=== PATIENT | male | born 1980 | race Caucasian/White ===

== ENCOUNTER 2016-04-06 09:06 | Emergency (ER) | payer OTHER ==
[~2016-04-06] VITALS: Ht 188 cm; Wt 170.4 kg
[~2016-04-06 09:06] MED LIST: ONDA-53 PO
[2016-04-06 09:26] VITALS: BP 171/109; PULSE 131; RESP 22; O2SAT 93
--- NOTE | 2016-04-06 09:49 | ED.REPORT ---
HPI-Abd Pain M Under 40 Date of Service Apr 06, 2016 ED Provider: Porfirio Hall Patient is a 35 year old male with a history of asthma and alcohol abuse who presents to the ED complaining of a distended abdomen which has been present for months. He does not report abdominal pain he reports some limited breathing because of his distended abdomen but this again is not acute. He denies abdominal tenderness he denies recent vomiting hematemesis or hematochezia. He stopped drinking for 50 days but about 20 days ago he started drinking again. Associated symptoms include shortness of breath and alcohol withdrawal symptoms. He denies abdominal pain, fever, or any other symptoms. He went to [facility] last night to have the fluid drained from his abdomen. After starting the procedure they determined that they did not have the proper equipment for the drainage and sent him here. Nursing Notes Stated Complaint: INCISION NEEDS DRAINED Chief Complaint: General Complaint Nursing Notes Reviewed: Yes Allergies: Coded Allergies: diphenhydramine (Verified Allergy, Unknown, rash, 08/21/15) used benadry in lotion form when he had chicken pox as kid and broke out in rash where cream was applied Scheduled PRN Lorazepam (Lorazepam) 1 Mg Tablet 1 MG PO DIRECTED PRN PRN For Insomnia 2 Tab every 4 hrs. for 2 days, then 1 tab every 4 hrs for 2 days then 1 tab tid for 2 days then stop Ondansetron (Ondansetron) 4 Mg Tablet 4 MG PO QID PRN PRN For Nausea General Time Seen by MD: 09:48 Chief Complaint Other (Abdominal discomfort ) Hx Obtained From: Patient, Other family... Arrived By: Walk-in Recent Healthcare: Recent doctor visit Past Medical History Past Medical History alcoholism Reports: Hypertension Past Surgical History None Smoking History Never Smoker Social History daily THC use Alcohol Use: In recovery Drug Use: THC Occupation Unemployed Ambulatory Status Independent Review of Systems +Bloated abdomen Constitutional: Reports: Fever Respiratory: Reports: Shortness of breath GI: Denies: Abdominal pain Complete sys rev & neg: except as marked. Physical Exam Initial Vital Signs Vital Signs (First) Date Time Temp Pulse Resp B/P Pulse Ox O2 Delivery O2 Flow Rate FiO2 04/06/16 09:26 37.4 131 22 171/109 93 Room Air Initial VS: Reviewed Head / Eyes: Atraumatic, Normocephalic Skin: Warm, Dry Neurologic: Alert, Oriented, Nonfocal Psychiatric: Mood/affect normal, Behavior normal, Normal thought content General/Constitutional: Awake, Alert, Well developed Respiratory / Chest: No respiratory distress Cardiovascular: Peripheral circulation NL Abdomen: Non-tender Wound at 7 o'clock position 5 cm below umbilicus. 1 needle poke that is leaking fluid Back: Inspection NL Interpretation & Diagnostics Bedside US: peritoneal edge 3 cm from surface Labs from visit on 04/05/16 at 2301 at [facility] 141 K 3.4 Cl 101 CO2 30 Anion gap 10 Glucose 136 BUN <1 Creatinine 0.72 Protein 8.7 Albumin 2.8 Lipase 389 Lactate 3.6 WBC 7.2 HGB 16.6 HCT 45.9 Platelets 62 APTT 27.6 Prothrombin 12.8 INR 1.3 Breathalyzer 0.282 at 2220 on 04/05/16 Lab Results Interpretation Test 04/06/16 14:00 Procedures 1130 Paracentesis: Informed consent from patient provided, timeout performed, full sterile technique utilized. Lidocaine 1% with epi. Skin cleaned 18-gauge catheters inserted into the peritoneum without complication. Patient tolerated procedure well, condition improved, no complications. 3800 cc clear bari fluid drained Re-Eval/Medical Decision Med Decision/Clinical Course This patient appears well. I believe that his ascites is chronic and that it is likely to reaccumulate over the coming weeks because of his underlying liver disease. There is no hope of his liver improving unless he can quit drinking which I believe is the primary issue here. I have no immediate concerns that he is at any danger for abdominal infection or severe complications of alcohol withdrawal. I believe outpatient withdrawal is appropriate Re-Evaluation/Progress #1: Time of Eval: 10:32 )( Re-Eval Abdomen: Non-tender Re-Evaluation/Progress Note: Discussed plan for drainage. Discussed plan to get patient into Crisis for withdrawal. Patient understands and agrees with plan. All questions addressed at this time. Re-Evaluation/Progress #2: Time of Eval: 12:12 )( Re-Eval Abdomen: Non-tender Re-Evaluation/Progress Note: Rechecked patient. Drainage complete. Heart rate is 120. Re-Evaluation/Progress #3: Time of Eval: 13:34 )( Re-Eval Abdomen: Non-tender Re-Evaluation/Progress Note: Discussed plan for discharge in care of father. Plan is for patient to go to Crisis at 2000 hours. Father is a reliable form of supervision and assumes responsibility at this time. Patient understands and agrees with plan. All questions addressed at this time. Counseled Regarding: Diagnosis, Lab results, Need for follow-up, When/why to return to ED Patient Discharge & Departure Primary Impression: Alcohol withdrawal Complication of substance-induced condition: uncomplicated Qualified Code: F10.230 - Alcohol dependence with withdrawal, uncomplicated Additional Impression: Ascites due to alcoholic cirrhosis Disposition: Home Discharge Condition All VS Reviewed: Yes Condition: Stable Patient Instructions: Abuse of Alcohol (ED), Cirrhosis (ED) Additional Instructions: We have removed some of the fluid from your abdominal cavity. This procedure is called a paracentesis. I expect that it will relieve the pressure in your abdomen and chest for the coming days. The real problem however is your alcoholic liver disease. The fluid will continue to reaccumulate until you quit drinking and allow your liver to heal. [facility] is willing and able to take you at 8:00 this evening. Do not drink any alcohol prior to arrival. They will not accept you if your alcohol level is over there limit. I have prescribed an Ativan taper for you I recommend lorazepam 2 mg tablets once every 4 hours for the first 2 days and tapering thereafter, see the prescription label. Do not take the lorazepam if he is sleepy or sleeping or not alert in any way. Referrals: Evens Carrion MD (PCP) Scribe Attestation Portions of this note were transcribed by Katy Nguyen. I, Dr. Hall personally performed the history, physical exam and medical decision-making; I reviewed and confirmed the accuracy of the information in the transcribed note. Signed by: Katy Nguyen 04/06/16, 1228 copies to: Evens Carrion MD, Kirk H MD Apr 06, 2016 09:49 KATY NGUYEN Apr 06, 2016 10:08
[2016-04-06] MEDS ORDERED: LORazepam 2 mg Tablet PO ONE (10:35)
[2016-04-06] MEDS ORDERED: Lidocaine 1%-Epi 1:100,000 20 mL Inj ONE (11:28)
[2016-04-06] MEDS ORDERED: LORA1TAB PO (13:49)
[2016-04-06 14:26] VITALS: BP 139/61; PULSE 131; RESP 16; O2SAT 91
== END 2016-04-06 14:28 | disposition home or self-care (01) ==
LOC: SED 09:06
DX: F10.230 Alcohol dependence with withdrawal, uncomplicated (principal); K70.31 Alcoholic cirrhosis of liver with ascites; J45.909 Unspecified asthma, uncomplicated; I10 Essential (primary) hypertension; Z88.8 Allergy status to other drugs, medicaments and biological substances; F12.920 Cannabis use, unspecified with intoxication, uncomplicated

== ENCOUNTER 2016-04-06 21:50 | Emergency (ER) | payer OTHER ==
[~2016-04-06] VITALS: Ht 188 cm; Wt 170.4 kg
[~2016-04-06 21:50] MED LIST changes: +LORA1TAB PO
[2016-04-06 22:09] VITALS: BP 146/91; PULSE 124; RESP 16; O2SAT 92
--- NOTE | 2016-04-06 22:49 | ED.REPORT ---
HPI-General Illness Date of Service Apr 06, 2016 ED Provider: Floyd Joseph MD Patient is a 35 year old male with a history of alcohol abuse and alcoholic cirrhosis who was seen and cleared for [facility] in the ED this morning presents to the ED tachycardic after he stopped drinking alcohol 1 day ago. Patient was seen in the ED this morning for alcohol withdrawal and a distended abdomen. His distended abdomen was causing him to be short of breath and uncomfortable. Paracentesis was preformed in the ED this morning. He was discharged this morning to go to [facility] at 2000, in the care of his father. Patient presented to [facility] as planned, but was told that they could not care for him due to his tachycardia. He was told to present to the ED for further medication and medical evaluation. He was prescribed Lorazepam in the ED this morning, but he was unable to make it to the Pharmacy to greens picker his prescription in time. His significant other went to pick it up and forgot that it was Friday, meaning the pharmacy was already closed. He denies abdominal pain, nausea, vomiting, or fever. Nursing Notes Stated Complaint: FAST HEART RATE Chief Complaint: Substance Abuse Nursing Notes Reviewed: Yes Allergies: Coded Allergies: diphenhydramine (Verified Allergy, Unknown, rash, 08/21/15) used benadry in lotion form when he had chicken pox as kid and broke out in rash where cream was applied Scheduled PRN Lorazepam (Lorazepam) 1 Mg Tablet 1 MG PO DIRECTED PRN PRN For Insomnia 2 Tab every 4 hrs. for 2 days, then 1 tab every 4 hrs for 2 days then 1 tab tid for 2 days then stop Ondansetron (Ondansetron) 4 Mg Tablet 4 MG PO QID PRN PRN For Nausea General Time Seen by MD: 22:46 Chief Complaint Other (tachycardic, alcohol withdrawal) Hx Obtained From: Patient Arrived By: Walk-in Sudden in Onset?: No Onset Occurred: 1 day ago Symptom Duration: Since onset Severity: Current: No pain currently Severity: Maximum: No pain Recent Healthcare: No recent hospitalization, Recent doctor visit Similar Sx Previous: Yes Past Medical History Past Medical History alcoholism alcoholic cirrhosis with ascities Reports: Hypertension Past Surgical History None Smoking History Never Smoker Social History daily THC use Alcohol Use: In recovery Drug Use: THC Occupation Unemployed Ambulatory Status Independent Review of Systems +tachycardic Full Review of Systems Constitutional: Denies: Chills, Fever Cardiovascular: Denies: Chest pain, Palpitations GI: Denies: Abdominal pain, Nausea, Vomiting Complete sys rev & neg: except as marked. Physical Exam Vital Signs Vital Signs Date Time Temp Pulse Resp B/P Pulse Ox O2 Delivery O2 Flow Rate FiO2 04/07/16 02:30 37.2 121 16 143/93 94 Room Air 04/06/16 22:09 37.2 124 16 146/91 92 Initial VS: Reviewed, Vital signs abnormal Extremities: Vascular intact, Neuro intact Skin: Warm, Dry, No cyanosis Neurologic: Alert, Oriented, Nonfocal Psychiatric: Mood/affect normal, Behavior normal, Normal thought content General/Constitutional: Awake, Alert Behavior: Positive: Anxious not tremulous, does not appear hyperactive Head / Eyes: Atraumatic, Normocephalic, PERRL, EOMI ENT: Airway patent, Mucous membranes moist Neck: Supple, Full range of motion Respiratory / Chest: Breath sounds NL, Breath sounds = bilat, No respiratory distress, No rales, No rhonchi, No wheezing Cardiovascular: Regular rhythm, Heart sounds NL Heart Rate / Rhythm: Positive: Tachycardia (mild) Abdomen: Soft, Non-tender paracentesis appears normal, no signs of infection Interpretation & Diagnostics Lab Results Interpretation Result Diagram: 04/06/16 2315 04/06/16 2315 Test 04/06/16 23:15 04/07/16 00:30 White Blood Count 4.9th/mm3 (3.8-10.1) Red Blood Count 4.35mil/mm3 (4.40-5.80) Hemoglobin 14.8g/dL (13.8-17.2) Hematocrit 41.3% (41.0-50.0) Mean Corpuscular Volume 94.9fL (81-100) Mean Corpuscular Hemoglobin 34.0pg (27.0-35.0) Mean Corpuscular Hemoglobin Concent 35.8% (32.0-37.0) Red Cell Distribution Width 13.4% (12.3-15.4) Platelet Count 42bil/L (150-400) Neutrophils (%) (Auto) 77.8% (40-74) Lymphocytes (%) (Auto) 10.1% (14-46) Monocytes (%) (Auto) 11.5% (4-12) Eosinophils (%) (Auto) 0.2% (0-5) Basophils (%) (Auto) 0.2% (0-3) Sodium Level 139mEq/L (134-144) Potassium Level 3.7mEq/L (3.5-5.2) Chloride Level 98mEq/L (97-108) Carbon Dioxide Level 27mmol/L (18-29) Blood Urea Nitrogen 3mg/dL (6-20) Creatinine < 0.30mg/dL (0.76-1.27) Estimat Glomerular Filtration Rate 363mL/min (>59) Glucose Level 101mg/dL (60-99) Calcium Level 7.8mg/dL (8.5-10.1) Magnesium Level 1.5mg/dL (1.6-2.6) Total Bilirubin 4.7mg/dL (0.0-1.2) Aspartate Amino Transf (AST/SGOT) 155U/L (0-50) Alanine Aminotransferase (ALT/SGPT) 47U/L (0-44) Alkaline Phosphatase 124U/L (25-150) Total Protein 7.5g/dL (6.4-8.4) Albumin 2.8g/dL (3.4-5.0) Lipase 58U/L (13-60) Hold Urine Received (Received) Lab Results Interpretation: Low platelets. Hypomagnesemia Re-Eval/Medical Decision Med Decision/Clinical Course 35-year-old male who was sent to sobering services for alcohol withdrawal. He was a little ache and getting to the pharmacy, so could not greens picker his Ativan taper prescription. He was felt to be in withdrawal with some tachycardia so was returned to the emergency room. Labs were repeated, and the only remarkable values were decreasing platelets and hypomagnesemia. He was in mild withdrawal with the C1 score of 10. He was given lorazepam, hydration, oral magnesium, and tolerated this well. He was returned to [facility] services improved. He was sent with a tapering prescription for lorazepam. Source of Hx: Old records Time of Eval: 01:15 Patient Status: Condition improved Re-Evaluation/Progress Note: Patient is improved with medication. Discussed lab results. Patient understands and agrees with the plan to be discharged to [facility]. Discharge instructions and follow-up discussed. All questions were addressed. Return to the ED warnings given. Consultation : Call Returned at: 00:42 Note: Spoke with [facility]. They do have a bed available for the patient. Will treat the patient's symptoms and then discharge him back to their facility. Counseled Regarding: Diagnosis, Lab results, Need for follow-up, When/why to return to ED Discharge & Departure Primary Impression: Alcohol withdrawal Complication of substance-induced condition: uncomplicated Qualified Code: F10.230 - Alcohol dependence with withdrawal, uncomplicated Disposition: Home Discharge Condition All VS Reviewed: Yes Condition: Stable Patient Instructions: Alcohol Withdrawal (ED) Additional Instructions: You received Ativan 0.5 mg IV at approximately 2300 hrs. and Ativan 1 mg by mouth on discharge. You have a taper at the pharmacy which can be initiated in the morning. Ondansetron 4 mg dissolved orally up to 4 times a day as needed for nausea and vomiting, #4 dispensed. Go directly to [facility] now. Scribe Attestation Portions of this note were transcribed by Sobia Mandujano. I, Dr. Joseph, personally performed the history, physical exam and medical decision-making; I reviewed and confirmed the accuracy of the information in the transcribed note. Signed by: Guanaco Blackmon, 04/07/2016 0139 Floyd Joseph MD Apr 06, 2016 22:49 Sobia Mandujano Apr 06, 2016 23:02
[2016-04-06] MEDS ORDERED: Pantoprazole 4 mg/mL 10 mL Inj IVPUSH ONE (22:55)
[2016-04-06] MEDS ORDERED: 0.9% Sodium Chloride 1,000 ML IV ONE (22:55)
[2016-04-06 23:35] LABS: BASOPHILS % (AUTO) 0.2 % (0-3); EOSINOPHILS % (AUTO) 0.2 % (0-5); MONOCYTES % (AUTO) 11.5 % (4-12); Mean Corpuscular Volume 94.9 fL (81-100); NEUTROPHILS % (AUTO) 77.8 % (40-74); Platelet Count 42 bil/L (150-400)
[2016-04-07 00:25] LABS: Lipase 58 U/L (13-60); Magnesium 1.5 mg/dL (1.6-2.6)
[2016-04-07] MEDS ORDERED: Ondansetron 2 mg/mL 2 mL Inj IVPUSH PRN (00:30)
[2016-04-07] MEDS ORDERED: LORazepam 1 mg Tablet PO ONE (01:05)
[2016-04-07] MEDS ORDERED: _Ondansetron ODT 4 mg Tablet PO PRN (01:05)
[2016-04-07] MEDS ORDERED: _LORazepam 2 MG Tablet PO SCH (01:50)
[2016-04-07 02:30] VITALS: BP 143/93; PULSE 121; RESP 16; O2SAT 94
== END 2016-04-07 02:00 | disposition home or self-care (01) ==
LOC: SED 21:50
DX: F10.230 Alcohol dependence with withdrawal, uncomplicated (principal); K70.31 Alcoholic cirrhosis of liver with ascites; F12.929 Cannabis use, unspecified with intoxication, unspecified; I10 Essential (primary) hypertension; Z88.8 Allergy status to other drugs, medicaments and biological substances
CPT/HCPCS: 36415; 80053; 83690; 83735; 85025; 96361; 96374; 96375; 99285; J2060; J2405; J7030

== ENCOUNTER 2016-04-07 13:19 | Inpatient (IN) | payer OTHER ==
[~2016-04-07] VITALS: Ht 188 cm; Wt 172.4 kg
[2016-04-07] VITALS (10 sets, daily range): BP systolic 111–182; BP diastolic 67–101; PULSE 95–129; RESP 14–22; O2SAT 92–96
--- NOTE | 2016-04-07 15:09 | ED.REPORT ---
HPI-Psychiatric Illness Date of Service Apr 07, 2016 ED Provider: Dr. Hall 35 year old male with a history of alcoholism and alcoholic cirrhosis with ascites who presents to the ED due to alcohol withdrawal. Pt was seen in the ED yesterday for the same and had a paracentesis. His breathing has improved after paracentesis yesterday. Pt has attempted to go to [facility] x[facility], but has been turned away due to tachycardia and hypertension. Pt reports fever and decreased appetite, but denies nausea and vomiting. Pt denies SI and HI. Nursing Notes Stated Complaint: CRISIS Chief Complaint: General Complaint Nursing Notes Reviewed: Yes Allergies: Coded Allergies: diphenhydramine (Verified Allergy, Unknown, rash, 08/21/15) used benadry in lotion form when he had chicken pox as kid and broke out in rash where cream was applied Scheduled PRN Lorazepam (Lorazepam) 1 Mg Tablet 1 MG PO DIRECTED PRN PRN For Insomnia 2 Tab every 4 hrs. for 2 days, then 1 tab every 4 hrs for 2 days then 1 tab tid for 2 days then stop Ondansetron (Ondansetron) 4 Mg Tablet 4 MG PO QID PRN PRN For Nausea General Time Seen by MD: 15:09 Chief Complaint Other (Tachycardia, hypertension) Hx Obtained From: Patient Arrived By: Walk-in Symptom Duration: Since onset Severity: Current: No pain currently Associated with: Denies: Fever Exacerbated by: Alcohol use Pertinent Negative: Relieved by nothing Recent Healthcare: Recent doctor visit Similar Sx Previous: Yes Risk-Psychiatric Illness Suicide Risk Stratification RF Statements: Risk factors reviewed Past Medical History Past Medical History alcoholism alcoholic cirrhosis with ascities Reports: Hypertension Past Surgical History None Smoking History Never Smoker Social History daily THC use Alcohol Use: In recovery Drug Use: THC Occupation Unemployed Ambulatory Status Independent Review of Systems Basic Review of Systems Eyes: Vision NL, No discharge ENT: Hearing NL, No pain, No nasal congestion, No pharyngeal pain Constitutional: Reports: Fever, Denies: Chills Respiratory: Denies: Non-productive cough, Shortness of breath Cardiovascular: Denies: Chest pain, Palpitations GI: Denies: Abdominal pain, Nausea, Vomiting Skin: Denies Diaphoresis, Denies Rash Neurologic: Denies: Change LOC, Headache Complete sys rev & neg: except as marked. Physical Exam Initial Vital Signs Vital Signs (First) Date Time Temp Pulse Resp B/P Pulse Ox O2 Delivery O2 Flow Rate FiO2 04/07/16 13:23 37.2 129 22 182/101 96 Room Air Initial VS: Reviewed Head / Eyes: Atraumatic, Normocephalic, PERRL ENT: Mucous membranes moist, Conjunctiva normal, No scleral icterus Neck: Supple, Full range of motion Respiratory: Breath sounds normal, Clear to auscultation, No respiratory distress Extremities: Vascular intact, Neuro intact, No swelling, No tenderness Skin: Warm, Dry, No cyanosis General/Constitutional: Awake, Alert Neurologic: Oriented X3, Speech NL, No motor deficits Psychiatric: Affect NL, Mood NL, Not suicidal, Not homicidal Cardiovascular: Regular rhythm, Heart sounds NL, No murmurs Heart Rate / Rhythm: Positive: Tachycardia Abdomen: Soft, Non-tender 2 puncture mojica to abdomen, well healing from paracentesis yesterday. Interpretation & Diagnostics ECG Interpretation Time: 16:14 Interpreted by: ED physician Rhythm / Conduction: Tachycardia (rate of 114) Re-Eval/Medical Decision Re-Evaluation/Progress : Time of Eval: 15:31 Re-Evaluation/Progress Note: Recommended admission. Pt understands and agrees with plan. All questions addressed. Consultation : Referral / Consult Name: Syed Ford MD Consulted With: Hospitalist Call Returned at: 15:31 Furniture Salesperson: Will see patient, Agrees with eval, Agrees with plan, Accepts admit Note: Labs completed yesterday. Requested ECG. Counseled Regarding: Diagnosis, Lab results, Need for admission Discharge & Departure Impression: Primary Impression: Alcohol withdrawal Complication of substance-induced condition: uncomplicated Qualified Code: F10.230 - Alcohol dependence with withdrawal, uncomplicated )( Condition at Discharge: No danger to self, No danger to others Disposition: ADMITTED TO HOSPITAL Discharge Condition All VS Reviewed: Yes Referrals: NOPCP (PCP) Scribe Attestation Portions of this note were transcribed by Traci Camp. I, (Dr. Hall) personally performed the history, physical exam and medical decision-making; I reviewed and confirmed the accuracy of the information in the transcribed note. Signed by: Traci Camp. 04/07/2016, 1627 Porfirio Hall MD Apr 07, 2016 15:09 Traci Camp Apr 07, 2016 15:24
[2016-04-07] MEDS ORDERED: Multivitamin w/Vit K Inj 10 ML, Thiamine Inj 100 MG, Folic Acid Inj 1 MG, Magnesium Sul... IV ONE ×5 (16:17)
[2016-04-07] MEDS: Sodium Chloride LOK Flush 10 mL Syringe IVFLUSH SCH (16:30)
--- NOTE | 2016-04-07 16:34 | PCM.HPMED ---
Subjective Date of Service Apr 07, 2016 Primary Provider: Admitting Physician: Primary Care Physician: Erlin Attending Physician: Chief Complaint: Hypertension tachycardia HISTORY was OBTAINED FROM PATIENT / [facility] NOT[facility] History of present illness 35-year-old male with cirrhosis alcohol, 1st therapeutic paracentesis April 06 in the ER w/ 3.8 L due to shortness of breath, stopped EtOH 01/2016 after admission at [facility] associated w/ vomiting blood but no EGD, just CT scan, then while off EtOH February and March, he noticed abdominal girth increasing, then he started drinking EtOh 1/5 vodka again a week ago, went to [facility] for ascites due to SOB, but lacked equipiment transferred here after ER doc performed paracentesis, sent to [facility], who sends him back here today ongoing sinus tachycardia and hypertension. palpatitations are felt. intermittent nose bleed/dark urine/tar stool/bruising. early satiety due to ascites. abdominal girth is tolerable. no seizures, but has tremors when not drinking EtOH. [facility] labs per ER note Platelets 62 INR 1.3 Breathalyzer 0.282 at 2220 on 04/05/16 no LFT labs noted Review of Systems - none of the following - F/C/sick contact / RODRIGUEZ / lightheaded / dizziness / cough / cp / acid reflux / vomiting bleeding/bruising / leg swelling / change in voiding / yeast infections / rash ambulates FAMILY HX HTN, unknown liver SOCIAL HX marijuana MEDICATIONS Ativan Past Medical/Surgical HX asthma alcoholism cirrhosis Allergies Coded Allergies: diphenhydramine (Verified Allergy, Unknown, rash, 08/21/15) used benadry in lotion form when he had chicken pox as kid and broke out in rash where cream was applied PMH Social History Hx Alcohol Use: Yes Hx Substance Use: No Smoking Status: Never Smoker Exam Vital Signs Vital Sign - Last Date Time Temp Pulse Resp B/P Pulse Ox O2 Delivery O2 Flow Rate FiO2 04/07/16 16:11 112 18 153/82 93 Room Air 04/07/16 13:23 37.2 Lab and Diagnostics Labs Exam on admission 1L NC NAD A and O x 3 mood affect WNL NC/AT no icterus no injected eyes EOMI PERRL /no pharyngeal lesions/ no oral lesions / hearing intact Supple neck CTAB equal chest rise / no accessory muscle use / speaks in full sentences / no rrw RRR S1 S2 / no mrg / 2+ radial pulses Soft nt nd + BS no hepatosplenomegaly, fluid wave present trace edema shins, no cyanosis no ecchymosis of lower extremities No rash / no jaundice [facility] EKG ST 114, Qwaves in most leads Trop neg x 1 plt 27 LFT AST > ALT Imaging pending liver/spleen u/s pending united CT report 01/2016 Assessment & Plan Active issues and reason for admission Alcoholic cirrhosis, ongoing hypertension and tachycardia., ascites started while he was sober. --1 L banana bag, trial propanolol, trial spironolactone, consider Lasix --Serial troponin/ tsh --When necessary Ativan --Anticipate that [facility] will accept him again thrombocytopenia due to likely splenomegaly, symptomatic --penidng B12 -- no blood thinners --PPI, consider EGD --fecal occult pending Chronic issues known prior to admission, present on admission Asthma/EtOH history ascites --s/p3.8L paracentesis by ER 04/06/2016 Diet cardiac DVT ambulate Code full Disposition OBS status Assessment and plan were discussed with patient Syed Ford MD Apr 07, 2016 16:34 Syed Ford MD Apr 07, 2016 16:34
[2016-04-07] MEDS ORDERED: Ondansetron 2 mg/mL 2 mL Inj IVPUSH ONE (16:55)
[2016-04-07 17:52] LABS: Mean Corpuscular Hemoglobin 33.7 pg (27.0-35.0)
[2016-04-07 18:40] LABS: TROPONIN T < 0.010 ug/L (0.0-0.011)
[2016-04-07] MEDS ORDERED: Vitamin B Complex/Vit C Tablet PO ONE (19:25)
[2016-04-08] VITALS (8 sets, daily range): BP systolic 126–155; BP diastolic 75–101; PULSE 86–100; RESP 18–20; O2SAT 94–96
[2016-04-08] MEDS: Sodium Chloride LOK Flush 10 mL Syringe IVFLUSH SCH ×3 (00:30→16:37)
[2016-04-08 03:52] LABS: BASOPHILS % (AUTO) 0.5 % (0-3); EOSINOPHILS % (AUTO) 2.5 % (0-5); MONOCYTES % (AUTO) 12.7 % (4-12); Mean Corpuscular Hemoglobin 33.7 pg (27.0-35.0); Mean Corpuscular Volume 94.4 fL (81-100); NEUTROPHILS % (AUTO) 65.9 % (40-74)
[2016-04-08 04:05] LABS: Platelet Count 31 bil/L (150-400)
[2016-04-08 04:42] LABS: TROPONIN T 0.01 ug/L (0.0-0.011)
--- NOTE | 2016-04-08 06:24 | NUR ---
Cardiac/Respiratory/GI/CIWA At beginning of the shift pts Tele: ST 90s-110s with increases to 130s-150s when standing up. Pt's HR has decreased to 80s-90s and BP is now maintained at 138/79. Pt denies SOB but knows that he is prone to ELIZABETH and has yet to get it diagnosed with a sleep study so pt requested 1L NC just in case for when he fell asleep. Pt is no longer on 1L NC. pt SpO2 on RA is 96%-98%. Pt's urine is very dark bari and has a reddish tinge to it. pt's platelet count this AM is 31. Pt was restless and anxious at the start of the shift and was given 1mg Ativan for the anxiety. Pt's CIWA score was 1. Pt has puncture wounds on lower abdomen from paracentesis performed on 04/06/2016 where 3.8L of fluid was pulled to relieve pt's SOB.
[2016-04-08 08:12] LABS: Bilirubin, Direct 2.3 mg/dL (0.0-0.3)
[2016-04-08] MEDS: Pantoprazole 40 mg ER24 Tablet PO SCH (08:21)
[2016-04-08] MEDS: Vitamin B Complex/Vit C Tablet PO SCH (08:24)
--- NOTE | 2016-04-08 09:45 | DRSVH ---
PROCEDURE: US ABDOMEN INDICATIONS: cirrhosis/splenomegaly TECHNIQUE: Real-time scanning was performed of the abdominal and retroperitoneal organs, with image documentatio n. COMPARISON: [facility], CT, CT ABDOMEN PELVIS W CONTRAST, 04/05/2016, 11:26 PM. [facility], CT, CT ABDOMEN PELVIS W CONTRAST, 02/11/2016, 11:24 AM. [facility], US, US GALLBLADDER, 02/11/2016, 8:46 AM. FINDINGS: Liver length: 21.61 cm Gallbladder Wall Thickness: 3.2 mm Spleen length: 13.50 cm Right kidney length: 13.52 cm Left kidney length: 13.53 cm Aorta(Mid): 2.53 cm Liver: Liver is diffusely heterogeneous and there is scalloping involving the hepatic capsule. No de finite discrete hepatic mass is seen. Gallbladder: Normal gallbladder. Biliary ducts: Suboptimally visualized. Pancreas: Visualized portions of the pancreas are sonographically normal. Spleen: Spleen is enlarged in size and homogeneous in echotexture. Kidneys: Kidneys are normal in size and echotexture. No hydronephrosis or nephrolithiasis. No messi d masses. Aorta: Not well-seen. Iliacs: Not well-seen. IVC: Not well-seen. Miscellaneous: Small amount of perihepatic fluid visualized as well as minimal fluid seen within the lower quadrants. IMPRESSION: 1. Diffusely echogenic, heterogeneous appearance of the liver with hepatic capsule scalloping in this patient with history of cirrhosis. No definite discrete hepatic masses seen. 2. Splenomegaly suggesting portal hypertension. 3. Small amount of perihepatic and lower quadrant ascites. Dictated by: Aristides Mcbride RR Interpreted: Shari Quintanilla MD on 04/08/2016 at 9:41 Transcribed by: JOSE on 04/08/2016 at 9:44 Approved by: Shari Quintanilla M.D. on 04/08/2016 at 10:08
--- NOTE | 2016-04-08 13:59 | NUR ---
CIWA, BM CIWA 3 and 2 this morning and this afternoon respectively. Pt. appeared more calm after a visit from his father. Pt. and father were updated on POC. Pt. reported no BM for 3 to 4 days. He denied constipation, he stated, "I haven't eaten much." Instructed pt. to keep stool sample in specimen hat for guaiac.
[2016-04-08 14:11] LABS: INR 1.41 ratio
[2016-04-08 14:31] LABS: BASOPHILS % (AUTO) 0.2 % (0-3); EOSINOPHILS % (AUTO) 3.8 % (0-5); MONOCYTES % (AUTO) 9.9 % (4-12); Mean Corpuscular Volume 94.1 fL (81-100); NEUTROPHILS % (AUTO) 68.8 % (40-74)
[2016-04-08 14:59] LABS: Platelet Count 33 bil/L (150-400)
--- NOTE | 2016-04-08 18:37 | PCM.PNMED ---
Subjective Date of Service Apr 08, 2016 Subjective 35 year old male with a history of alcoholism and alcoholic cirrhosis with ascites who presents to the ED due to alcohol withdrawal. Pt was seen in the ED yesterday for the same and had a paracentesis. His breathing has improved after paracentesis yesterday. Pt [facility], but has been turned away due to tachycardia and hypertension. Pt reports fever and decreased appetite, but denies nausea and vomiting. Pt denies SI and HI. Stated he drinks up to 1/5th of hard alcohol per day. Overnight: no events reported Today: Patient reports that he feels anxious, and he has had areas bleeding for longer periods of time when he gets blood draws, reports that nose bleeds have started since the past month. Patient denies fever, chills, shortness of breath change in vision. ROS negative except for mentioned above Exam Vital Signs Vital Sign - Last Date Time Temp Pulse Resp B/P Pulse Ox O2 Delivery O2 Flow Rate FiO2 04/08/16 03:57 36.7 89 18 138/75 96 Nasal Cannula 1.00 Intake and Output 04/07/16 04/07/16 04/08/16 Cumulative From/Thru 15:00 23:00 07:00 04/07/16 13:23 - 04/08/16 05:59 Intake Total 2069 ml 2069 ml Output Total 1675 ml 1675 ml Balance 394 ml 394 ml Intake Oral 1070 ml 1070 ml IV Total 999 ml 999 ml Output Urine Total 1675 ml 1675 ml Exam General: Alert, Oriented X3, Cooperative, No Acute Distress, anxious, Head: Normocephalic, atraumatic. External ears normal. Eyes: PERRLA, EOMI. Anicteric sclerae. Pale conjunctiva Mouth: Mouth Normal, Mucous Membranes Moist/[place] Neck: Neck supple with full range of motion. No JVD Chest & Lungs: Clear to auscultation bilaterally with no crackles, wheezes, or rhonchi. Cardiovascular: Regular Rate/Rhythm, Normal S1, Normal S2, No Murmurs/Rubs/ Gallops Abdomen: Non-tender, distended, minimal ascites present, No masses, Normoactive bowel tones, Soft Musculoskeletal: Normal Range of Motion Extremities: No cyanosis/clubbing/edema bilaterally Neurological: Grossly Neurologically Intact, Cranial Nerves 2-12 Intact, Normal Speech, Strength Normal 4/4 ext, Normal Gait, Sensation Intact, Cerebellar Function nl Finger-Nose, Cerebellar Function nl Heel-[place], Reflexes Normal IVs and Medications Medications Reviewed: Medications were reviewed in detail Lab and Diagnostics Result Diagram: 04/08/16 03404/08/16 0340 X-Rays, CTs and MRIs Abdominal US IMPRESSION: 1. Diffusely echogenic, heterogeneous appearance of the liver with hepatic capsule scalloping in this patient with history of cirrhosis. No definite discrete hepatic masses seen. 2. Splenomegaly suggesting portal hypertension. 3. Small amount of perihepatic and lower quadrant ascites. Dictated by: Aristides Mcbride RRA Interpreted: Shari Quintanilla MD on 04/08/2016 at 9:41 Transcribed by: JOSE on 04/08/2016 at 9:44 Approved by: Shari Quintanilla M.D. on 04/08/2016 at 10:08 Assessment & Plan 35 year old male with a history of alcoholism and alcoholic cirrhosis with ascites who presents to the ED due to alcohol withdrawal. Pt was seen in the ED yesterday for the same and had a paracentesis. His breathing has improved after paracentesis yesterday. Pt has attempted to go to [facility] x[facility], but has been turned away due to tachycardia and hypertension. Pt reports fever and decreased appetite, but denies nausea and vomiting. Pt denies SI and HI. Stated he drinks up to 1/5th of hard alcohol per day. Hospital day 2 1. Alcoholic cirrhosis, ongoing hypertension and tachycardia., ascites started while he was sober. -1 L Thiamine, Magnesium, folate in NS given in ED -Serial troponin/ - tsh high, T4 normal - Ativan 1 mg PRN tremors - ABD US, showed cirrhosis of liver --Anticipate that [facility] will accept him again - Start Librium taper tomorrow 2.thrombocytopenia due to likely splenomegaly, symptomatic -penidng B12 - HOLD blood thinners -PPI, - GI coonsulted appreciate their reccomendation - consider EGD - R/o infectious process HIV panel ordered, Hepatitis panel ordered, EBV pending, -fecal occult pending Chronic issues known prior to admission, present on admission 3.Asthma 4.ascites --s/p3.8L paracentesis by ER 04/06/2016 5. EtOH history Diet cardiac DVT ambulate Code full Disposition OBS status Assessment and plan were discussed with patient VTE Mechanical Devices: Intermittant Pneumatic CD Attending Statement The patient was seen and examined together with Dr. Britt on 04/08/2016 and I agree with the history, exam and plan as outlined in the note above. . NITO BRITT DO Apr 08, 2016 07:36 Roberto Castnaeda MD Apr 11, 2016 07:45
[2016-04-09 03:07] LABS: Hepatitis A Antibody IgM Negative (Negative); Hepatitis B Core Antibody IgM Negative (Negative)
[2016-04-09 03:27] LABS: BASOPHILS % (AUTO) 0.2 % (0-3); EOSINOPHILS % (AUTO) 2.3 % (0-5); MONOCYTES % (AUTO) 9.9 % (4-12); Mean Corpuscular Hemoglobin 34.3 pg (27.0-35.0); Mean Corpuscular Volume 93.1 fL (81-100); NEUTROPHILS % (AUTO) 74.8 % (40-74); Platelet Count 46 bil/L (150-400)
[2016-04-09 03:44] LABS: INR 1.43 ratio
[2016-04-09 03:51] LABS: Magnesium 1.6 mg/dL (1.6-2.6); Phosphorus 1.2 mg/dL (2.5-4.9)
[2016-04-09 04:27] VITALS: BP 152/95; PULSE 97; RESP 20; O2SAT 95
[2016-04-09] MEDS: Sodium Chloride LOK Flush 10 mL Syringe IVFLUSH SCH ×3 (05:15→16:30)
--- NOTE | 2016-04-09 05:21 | NUR ---
Anxiety/Telemetry Patient had mild to moderate episodes of anxiousness and had to be reassured about his care throughout the shift. Auditory hallucinations noted. "I hear the kids in the hallway banging on the doors." CIWA scored at 10 and patient agreed to IV Lorazepam to help decrease some anxiety. The patient appears asleep right now. New order for removal of telemetry at patient's request to shower in the AM. Tele: SR HR 87. Denies chest pain, shortness of breath, and discomfort.
[2016-04-09 06:14] LABS: Vitamin B12 1548 pg/mL (211-946)
[2016-04-09] MEDS: Pantoprazole 40 mg ER24 Tablet PO SCH (07:49)
[2016-04-09] MEDS: chlordiazePOXIDE 25 mg Capsule PO SCH ×4 (07:49→22:01)
[2016-04-09] MEDS: Vitamin B Complex/Vit C Tablet PO SCH (07:50)
[2016-04-09 07:52] VITALS: BP 140/89; PULSE 101; RESP 20; O2SAT 97
--- NOTE | 2016-04-09 08:00 | NUR ---
Anxiety Pt at shift change came out into the hallway and announced that he could not be here anymore and wanted to leave AMA. Stated that he needed to be locked up on a 3 day hold. MD and credit charge authorizer notified. Pt displayed anxiety, diaphoretic, believed that children had been running up and down the hallway all evening, and that they had been taking pictures of the pt and posting to the internet. Pt is alert and oriented to place, he is confused to time. Pt was agreeable to stay and talk with a doctor before leaving. Pt agreed to taking medications. Administered PO 50mg Librium. Will start CIWA protocol.
[2016-04-09] MEDS: Multivit-Miner-Folic Acid-Iron Tablet PO SCH (10:00)
[2016-04-09] MEDS ORDERED: Thiamine Inj 100 MG, Folic Acid Inj 1 MG, Magnesium Sulfate 50% Inj 2 GM, Multivitamins... IV ONE ×5 (10:00)
[2016-04-09] MEDS ORDERED: Haloperidol 5 mg/mL Inj IVPUSH ONE ×2 (10:10→13:25)
--- NOTE | 2016-04-09 11:23 | NUR ---
Social Work Note: Screen Note Data& Assessment: EMR reviewed. James Gallagher is a 35 year old male admitted on 04/07/2016 for ETOH withdrawal. Pt has [employer] insurance coverage. Pt lives in [place] and is independent at baseline. Per previous ED WEIGH [facility] documentation on 04/06/2016, pt [facility] who confirmed that pt did go to their facility and discharged back into the community. [facility] staff explained pt is welcome back if he the pt would like to go through the screening process. Per sound art instructor, pt is experiencing hallucinations at this time. SW to follow up with pt regarding CD assessment and DC planning when appropriate. SW to continue to follow. Plan: Anticipated discharge back home via POV vs. [facility] when medically ready. SW to follow up with pt regarding CD assessment and DC planning when appropriate. SW to continue to follow. KRYSTAL Purvis
--- NOTE | 2016-04-09 12:12 | PCM.DIMED ---
Maude Arana DO 04/09/16 1212: Discharge Instructions Date of Service Apr 09, 2016 Dates of Hospitalization Apr 07, 2016 at 16:57 Discharge Diagnosis Discharge Diagnosis Alcohol Withdrawal Hallucinations Medication Instructions Please start taking olanzapine. This will help with your hallucinations. Test Results We would like to stay to get treated for your hallucinations but you are refusing. Patient Instructions Please follow up with the residency clinic as soon as possible. This week if possible. Please follow up with psychiatry as soon as possible. Follow-up with PCP in: 1 week Roberto Castaneda MD 04/11/16 0746: Maude Arana DO Apr 09, 2016 12:12 Roberto Castaneda MD Apr 11, 2016 07:46
[2016-04-09] MEDS ORDERED: OLAN10TA19 PO (12:20)
[2016-04-09] MEDS ORDERED: Haloperidol 5 mg/mL Inj IM ONE (13:10)
--- NOTE | 2016-04-09 14:12 | NUR ---
CIWA/Mentation Pt CIWA score 16 for anxiety, restlessness, auditory and visual hallucinations. Pt states that he is not experiencing detox symptoms. Pt is acutely paranoid at this time and states that there are people in the hospital that want to attack him. Pt's father states that pt has a history of mental illness, initially diagnosed when he was 5 years of age.
--- NOTE | 2016-04-09 15:13 | NUR ---
NUTRITION ASSESSMENT: ASSESS: Pt is a 35yo M admitted for ETOH withdrawal. Pt s/p paracentesis 04/06. Currently on CIWA protocol. Received banana bag at admit. Current CIWA ~16. Pt is having hallucinations. Psych to see pt. He is on a Heart Healthy diet with good PO at 100%. No reported n/v. Pt reported some decreased appetite but PO has been good since paracentesis. PMHX: ETOH, Cirrhosis w/ascites LABS: Reviewed. Bun 4, Audit Spec .4, Glu 122, Ca 8.3, phos 1.2, T. bili 7.5, AST 138, Alb 2.5 MEDS: Reviewed. Banana bag completed, thiamine GI: BMx1 04/08 SKIN: Robin 21 CURRENT WTS: 172.4kg, BMI 48.8kg/m2, admit wt 172kg, IBW 86.3kg, adj bw: 104.8kg DIET: Heart Healthy, PO 100% EST. NEEDS: Cirrhosis, BMI Kcals: 2620-3145kcal/day (25-30kcal/kg adj bw) Pro: 85-100g/day (1.0-1.2g/kg IBW) NUTRITION DIAGNOSIS: 1.) No nutrition diagnosis at this time. PO adequate at this time. NUTRITION INTERVENTION: 1.) Continue current diet at this time MONITOR / EVAL: PO, wt, labs, GI, POC, nutrition status. Will continue to monitor per moderate nutrition risk guidelines
--- NOTE | 2016-04-09 17:32 | CONS ---
[address] [address] CONSULTATION REPORT PATIENT: HARJINDER MAYEN : 1980 MR#: [id number] ADMIT: 04/07/2016 JOB ID: [id number] DATE OF ADMISSION: 04/07/2016 DATE OF SERVICE: 04/09/2016 IDENTIFICATION: The patient is a 35-year-old, white male who struggles with severe alcoholism. He has a girlfriend who was with him. They live in [place]. REASON FOR CONSULTATION: Client was requesting to leave and was having active hallucinations. The medicine team was concerned about his mental state and his ability to leave against medical advice. HISTORY OF PRESENT ILLNESS: I met with the patient in the calle as he was trying to leave. I reviewed course and records kept by [facility] and interviewed both of his internal medicine doctors. Client's main issue is severe alcoholism. He is drinking somewhere between a fifth and a half of hard liquor a day for the past eight years. That condition is chronic, however, the acute situation is abruptly stopping five days ago and currently presenting with moderate symptoms of a delirium tremens. He has poor sleep, high agitation, autonomic nervous system instability, and symptoms of auditory hallucinations, visual hallucinations and paranoid delusions. I was able with help from Security to get him back in his room. He was presenting with signs of extreme emotional liability, marked cognitive deficits and severe impairment in insight, judgment and reality testing. PSYCHIATRIC REVIEW OF SYSTEMS: Was difficult to verify because client is essentially in a delusional state. He has multiple symptoms of psychosis, auditory hallucinations, visual hallucinations and delusions. PAST MEDICAL HISTORY: MEDICATIONS: None. ALLERGIES: Client stated he had a rash as a child to BENADRYL. PAST MEDICAL HISTORY: Alcoholism, alcohol cirrhosis with ascites, hypertension. PAST PSYCHIATRIC HISTORY: Client made references to being in a psychiatric hospital as a child for ADHD. PSYCHOSOCIAL HISTORY: Client was a poor historian and refused to answer psychosocial history questions. PHYSICAL EXAMINATION: Vital signs: 152/95, pulse 114, afebrile, respiratory rate 22. PHYSICAL EXAMINATION: The patient appeared diaphoretic and agitated. His gait was unsteady. Mental status: Client had poor eye contact and behaved in a restless manner. His attitude was evasive and suspicious. His speech was regular rate and rhythm. Mood was guarded, suspicious and irritable. Affect was congruent with high intensity. Thought process: Client unable to relate a coherent history. His thought process is very concrete and literal. He had multiple ideas of reference and loose associations. His thought content was significant for delusional themes of paranoia and persecution. He reported auditory hallucinations. Client could not participate in orientation, memory or attention evaluation questions. Insight and judgment both impaired. Impulse control is poor. Reality testing is impaired. IMPRESSION: The patient is a 35-year-old white male with a history of severe alcohol use over the past 10 years. He currently appears to be in a acute delirium due to alcohol withdrawal. The Internal Medicine team has him on an alcohol withdrawal protocol that appears appropriate. I would simply add the addition of an antipsychotic. DIAGNOSES: [place] I1. Delirium. 2. Rule out major psychiatric disorder. [place] IIDeferred. [place] III1. Alcohol withdrawal. 2. Delirium tremens. 3. Alcoholic cirrhosis. 4. Recent ascites, drained. [place] IVUnknown. [place] VCurrent global assessment of functioning equal to 25. PLAN: Recommend client be continued to have an alcohol detox with Librium. Recommend hydration and Haldol 5 mg b.i.d. Client did list Benadryl as an allergy. This sounded like it was unlikely an allergy but you could use Cogentin 0.5 mg b.i.d. with the Haldol to avoid any type of dystonia or EPS reaction. I will evaluate him with you and as he clears will help with appropriate recommendations. Thank you for an interesting consult.
[2016-04-09 19:20] VITALS: O2SAT 93
--- NOTE | 2016-04-09 20:19 | PCM.PNMED ---
Subjective Date of Service Apr 09, 2016 Subjective 35 year old male with a history of alcoholism and alcoholic cirrhosis with ascites who is admitted for treatment of alcohol withdrawal, now showing signs of delirium. Hospital Day 2 Overnight: nursing reported patient was agitated throughout the night and reported auditory hallucinations Today: Patient reports that he feels anxious, and does not want to be in his current room due to a "man in upstairs bothering me by making noise and highschool kids talking in the vents making fun of my weight." When asked again about his drinking habits patient reported that he has been consuming up to a 1/ 2 gallon of hard alcohol and stopped abruptly five days ago. Patient noted that he has experienced similar feelings of anxiety and hearing voices when he stopped in the past. Patient reported that he had a prior hospitalization for mental illness when he was 9 years old but is unable to provide further detail and becomes very guarded. Patient reported feeling sweaty, uncomfortable sitting down. Patient denies fever, chills, shortness of breath change in vision. He denies suicidal ideation, denies homicidal ideation. ROS negative except for mentioned above Exam Vital Signs Vital Sign - Last Date Time Temp Pulse Resp B/P Pulse Ox O2 Delivery O2 Flow Rate FiO2 04/09/16 04:27 37.4 97 20 152/95 95 Room Air 04/08/16 03:57 1.00 Intake and Output 04/08/16 04/08/16 04/09/16 Cumulative From/Thru 15:00 23:00 07:00 04/07/16 13:23 - 04/09/16 04:51 Intake Total 500 ml 860 ml 3429 ml Output Total 1870 ml 1475 ml 5020 ml Balance -1370 ml -615 ml -1591 ml Intake Oral 500 ml 860 ml 2430 ml IV Total 999 ml Output Urine Total 1870 ml 1475 ml 5020 ml # Bowel Movements 1 1 Exam General: Alert, Oriented X3, non-cooperative, distressed, anxious, diaphoretic Head: Normocephalic, atraumatic. External ears normal. Eyes: PERRLA, EOMI. Anicteric sclerae. Pale conjunctiva Mouth: Mouth Normal, Mucous Membranes Moist/[place] Neck: Neck supple with full range of motion. No JVD Chest & Lungs: Clear to auscultation bilaterally with no crackles, wheezes, or rhonchi. Cardiovascular: Regular Rate/Rhythm, Normal S1, Normal S2, No Murmurs/Rubs/ Gallops Abdomen: Non-tender, distended, minimal ascites present, No masses, Normoactive bowel tones, Soft Musculoskeletal: Normal Range of Motion Extremities: No cyanosis/clubbing/edema bilaterally Neurological: Grossly Neurologically Intact, Cranial Nerves 2-12 Intact, speech normal rate and rhythm, unstready Gait, Sensation Intact, Cerebellar Function Finger-Nose abnormal, Psych: Labile, guarded anxious mood, flat affect, evasive eye contact, loose associations, multiple ideas of reference, delusions, paranoia, reported auditory hallucinations, insight and judgement severely limited, poor impulse control IVs and Medications Medications Reviewed: Medications were reviewed in detail Lab and Diagnostics Result Diagram: 04/09/1631404/09/16314 X-Rays, CTs and MRIs Abdominal US IMPRESSION: 1. Diffusely echogenic, heterogeneous appearance of the liver with hepatic capsule scalloping in this patient with history of cirrhosis. No definite discrete hepatic masses seen. 2. Splenomegaly suggesting portal hypertension. 3. Small amount of perihepatic and lower quadrant ascites. Dictated by: Aristides Mcbride RRA Interpreted: Shari Quintanilla MD on 04/08/2016 at 9:41 Transcribed by: JOSE on 04/08/2016 at 9:44 Approved by: Shari Quintanilla M.D. on 04/08/2016 at 10:08 Assessment & Plan 35 year old male with a history of alcoholism and alcoholic cirrhosis with ascites who is admitted for treatment of alcohol withdrawal, now showing signs of delirium. Hospital Day 2 1. Alcoholic cirrhosis, ongoing hypertension and tachycardia., ascites started while he was sober. - MELD SCORE: 16 CHILD ANDERS SCORE: 11, Class C chronic liver disease, estimated mortality in 1 year 55 % 2 year 65%. Discriminate function: 22.4 - Start Chlordiazepoxide taper started today 50-100 mg PO Q6 - Continue Chlordiazepoxide taper tomorrow 50-100 mg Q8 - Ativan 1 mg PRN tremors - ABD US, showed cirrhosis of liver - Continue Vitamin B complex/Vitamin C 1 tab PO QD - Continue Thiamine 100 mg PO QD - Continue Vitamin PO QD - Continue CIWA protocol 2. Thrombocytopenia, acute, present on admission -Per chart review patient has been seen before with similar symptoms however platelets have never been below 90 - Further work up is needed to determine if this is due to an infectious process vs acute on chronic liver disease vs underlying bone marrow disorder, or anemia - B12, 1548 - PLT 46 04/09 - Bilirubin 7.5 -INR 04/09 1.43 PTT 15.4 - Consider Iron studies - HOLD anticoagulation - Consider starting PPI for GI prophylaxis - GI consulted appreciate their recommendations and time - consider EGD once patient condition is more stable and thrombocytopenia is resolved. - R/o infectious process HIV panel negative, Hepatitis panel negative, EBV pending, -fecal occult pending 3. Delirium, acute, present on admission - Patient on hospital day to presented with severe auditory hallucinations, delusions, ideas of reference, autonomic instability - Due to patient's altered mentation it is difficult to determine whether this is an underlying mental illness or ETOH withdrawal as cause of delirium, continued treatment of ETOH withdrawal and observation are required to rule out underling mental illness, consider in differential ETOH withdrawal, Organic brain disease, underlying mental illness, - TSH 4.65, T4 1.15 r/o comitant thyroid disorder as source of delirium - Continue Lorazepam 1 mg Q4 PRN for anxiety - Propranolol 10 mg TID for agitation - Haloperidol 5 mg Q6 IV push for delirium - Diphenhydramine for itching, patient reported unverified allergy resulting in rash, continue to monitor discontinue at first sign of adverse reaction. - Investigation to whether there are any records of prior hospitalizations will be attempted tomorrow. - Hospital Psychiatry consulted we appreciate their time and expertise on this case, patient has reported psychiatric history and their help determining presence or lack there of comitant mental illness is greatly appreciated. 4. Obesity, chronic, present on admission - A1C ordered, r/o associated metabolic syndrome 5.Asthma, chronic, present on admission - Hold albuterol until patient's anxiety resolved - Consider ipratropium neb PRN Q6 for SOB 6.Ascites, acute, present on admission, improving - U/S of abdomen showed small residual peritoneal fluid - s/p3.8L paracentesis by ER 04/06/2016 7. EtOH history, chronic, present on admission -Per outpatient records patient has long stating history of ETOH abuse -Continue treatment as above -Recommend close follow up as outpatient and outpatient abstinence program Diet: Cardiac DVT ambulate, SCD's while in bed Code full Disposition: Patient will [facility] to [facility] once stabilized likely stay 24-48 hours Assessment and plan were discussed with patient VTE Mechanical Devices: Intermittant Pneumatic CD Attending Statement The patient was seen and examined together with Dr. Burgess on 04/09/2016 and I agree with the history, exam and plan as outlined in the note above. . NITO BURGESS DO Apr 09, 2016 06:49 Roberto Castaneda MD Apr 11, 2016 07:45
[2016-04-09 20:40] VITALS: BP 125/72; PULSE 88; RESP 18; O2SAT 93
[2016-04-09] MEDS: Haloperidol 5 mg/mL Inj IVPUSH SCH (21:05)
[2016-04-10] MEDS: Sodium Chloride LOK Flush 10 mL Syringe IVFLUSH SCH ×3 (00:30→16:30)
[2016-04-10] MEDS: Haloperidol 5 mg/mL Inj IVPUSH SCH ×2 (02:45→09:45)
[2016-04-10 02:47] VITALS: BP 112/65; PULSE 86; RESP 18; O2SAT 94
[2016-04-10 03:34] LABS: BASOPHILS % (AUTO) 0.4 % (0-3); EOSINOPHILS % (AUTO) 3.1 % (0-5); Mean Corpuscular Hemoglobin 33.6 pg (27.0-35.0); Mean Corpuscular Volume 95.1 fL (81-100); NEUTROPHILS % (AUTO) 64.9 % (40-74)
[2016-04-10 03:37] LABS: Platelet Count 37 bil/L (150-400)
[2016-04-10 03:44] LABS: INR 1.37 ratio
[2016-04-10 03:52] LABS: Magnesium 1.7 mg/dL (1.6-2.6)
[2016-04-10 04:17] LABS: ERYTHROCYTE SEDIMENTATION RATE 24 mm/hr (0-15)
--- NOTE | 2016-04-10 05:16 | NUR ---
Haldol/Librium pt not on Telemetry,non compliant, sleeping in pull-out , bed not comfortable, girl friend in room assisting w ADL and reorientation, Asked him if he was having a better night than previously but he was unable to recall events of prior evenings , has been sleeping restfully most of the night . Pt has not C/O CIWA symptoms, , somewhat A&O , not demanding . is content to sleep when medicated. Will benefit from psychiatric interventions.
[2016-04-10 08:03] LABS: Bilirubin, Direct 2.1 mg/dL (0.0-0.3)
[2016-04-10 08:10] VITALS: BP 122/76; PULSE 84; RESP 16; O2SAT 96
[2016-04-10] MEDS: chlordiazePOXIDE 25 mg Capsule PO SCH ×2 (09:45→15:54)
[2016-04-10] MEDS: Vitamin B Complex/Vit C Tablet PO SCH (09:45)
[2016-04-10] MEDS: Pantoprazole 40 mg ER24 Tablet PO SCH (09:45)
[2016-04-10] MEDS: Multivit-Miner-Folic Acid-Iron Tablet PO SCH (09:45)
[2016-04-10] MEDS ORDERED: Haloperidol 5 mg/mL Inj IVPUSH PRN (13:20)
[2016-04-10 15:52] VITALS: BP 132/84; PULSE 93; RESP 16; O2SAT 95
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
--- NOTE | 2016-04-10 16:16 | PCM.DIMED ---
NITO BRITT DO 04/10/16 1616: Discharge Instructions Date of Service Apr 10, 2016 Dates of Hospitalization Apr 07, 2016 at 16:57 Discharge Diagnosis Discharge Diagnosis Alcohol Withdrawal Hallucinations Diet Heart Healthy, Diabetic Activity Limited until seen by PCP Call your provider Fever or Chills, Shortness of breath, Bleeding, Chest pain, Vomitting, Excessive diarrhea, Weakness (unilateral) Patient Instructions Please follow up with the residency clinic as soon as possible. This week if possible. Continue Librium taper take one more at bed time tonight 04/10, tomorrow 04/11 take 1 in the morning and 1 at night, 04/12 take 1 at night Based on our discussions today you are ready to abstain from alcohol. We wish you the best of luck in your continuing recovery and continued health. We recommend that you continue with abstinence programs such as Alcoholics Anonymous. Continue home medications. Continue thiamine Continue vitamine supplements If you experience any symptoms of worsening withdrawal seek emergency medical care. Recommend follow up screening Ultrasound of liver in 6 months Discharge plan discussed with patient, patient agrees to plan, all questions answered. Follow-up plan as above Follow-up Provider: NITO BRITT DO Follow-up with PCP in: 1 week Roberto Castaneda MD 04/11/16 0747: Discharge Instructions Attending's Statement The patient was seen and examined together with Dr. Britt on 04/10/2016 and I agree with the history, exam and plan as outlined in the note above. . NITO BRITT DO Apr 10, 2016 16:16 Roberto Castaneda MD Apr 11, 2016 07:47
[2016-04-10] MEDS ORDERED: CHLO25CA10 PO (16:20)
[2016-04-10] MEDS ORDERED: Thiamine PO (16:20)
[2016-04-10] MEDS ORDERED: PREN1TAB25 PO (16:20)
--- NOTE | 2016-04-10 16:56 | NUR ---
Discharge note Patient a/o x 4, denies pain, nausea or sob. CIWA 0. Patient taking diet well. VSS, no tele. IV SL removed intact. Patient given discharge instructions, medication reconciliation, info on diagnosis and new meds and prescriptions. All questions answered. Patient taken to car in wheelchair with all belongings and discharged home with friend.
--- NOTE | 2016-04-10 19:03 | PCM.DC.MED ---
Discharge Summary Date of Service Apr 10, 2016 Dates of Hospitalization Date of Hospital Admission Apr 07, 2016 at 16:57 Date of Discharge: Apr 10, 2016 Providers: Admitting Physician: ySed Ford MD Primary Care Physician: Erlin Attending Physician: Syed Ford MD Diagnosis at Time of Discharge Diagnosis at Time of Discharge Alcohol Withdrawal Hallucinations Procedures XRay, CTs & MRIs Abdominal US IMPRESSION: 1. Diffusely echogenic, heterogeneous appearance of the liver with hepatic capsule scalloping in this patient with history of cirrhosis. No definite discrete hepatic masses seen. 2. Splenomegaly suggesting portal hypertension. 3. Small amount of perihepatic and lower quadrant ascites. Dictated by: Aristides Mcbride RRA Interpreted: Shari Quintanilla MD on 04/08/2016 at 9:41 Transcribed by: JOSE on 04/08/2016 at 9:44 Approved by: Shari Quintanilla M.D. on 04/08/2016 at 10:08 Hospital Course 35 year old male with a history of alcoholism and alcoholic cirrhosis with ascites who is admitted for treatment of alcohol withdrawal, now showing signs of delirium. Hospital Day 2 1. Alcoholic cirrhosis,acute on chronic, present on admission, ongoing - MELD SCORE: 16 CHILD ANDERS SCORE: 11, Class C chronic liver disease, estimated mortality in 1 year 55 % 2 year 65%. Discriminate function: 22.4 - Start Chlordiazepoxide taper started 04/09/15 50-100 mg PO Q6 - Continue Chlordiazepoxide taper 04/10/16 50-100 mg Q8 - Taper 04/11/16 50-100 mg BID - Taper 04/11/16 50-100 mg HS - Ativan 1 mg PRN tremors. Discontinued at discharge - ABD US, showed cirrhosis of liver - Continue Vitamin B complex/Vitamin C 1 tab PO QD - Continue Thiamine 100 mg PO QD - Continue Vitamin PO QD - Continue CIWA protocol. CIWA score at discharge 0. Discontinued at discharge -Recommend repeat U/S in 6 months after abstinence of alcohol -Recommend follow up CT tor r/o hepatocellular carcinoma 2. Thrombocytopenia, acute, present on admission, ongoing -Per chart review patient has been seen before with similar symptoms however platelets have never been below 90, current symptoms are likley due to chronic alcohol abuse and acute liver failure - Further work up is needed to determine if this is due to an infectious process vs acute on chronic liver disease vs underlying bone marrow disorder, or anemia - B12, 1548 - PLT 46 04/09 - Bilirubin 7.5 - INR 04/09 1.43 PTT 15.4 - Held anticoagulation - consider EGD once patient condition is more stable and thrombocytopenia is resolved r/o esophagitis, varices as outpatient - R/o infectious process HIV panel negative, Hepatitis panel negative, EBV pending, -fecal occult pending, negative 3. Delirium, acute, present on admission, Resolved - Patient on hospital day to presented with severe auditory hallucinations, delusions, ideas of reference, autonomic instability - Patient's altered mentation likely due to ETOH withdrawal as cause of delirium, continued treatment of ETOH withdrawal, delirium resolved with treatment of ETOH withdrawal - TSH 4.65, T4 1.15 r/o comitant thyroid disorder as source of delirium - Continue Lorazepam 1 mg Q4 PRN for anxiety. Discontinued at discharge - Propranolol 10 mg TID for agitation. Discontinued at discharge - Haloperidol 5 mg Q6 IV push for delirium. Discontinued at discharge - Diphenhydramine for itching, patient reported unverified allergy resulting in rash, continue to monitor discontinue at first sign of adverse reaction. Discontinued at discharge - Hospital Psychiatry consulted we appreciate their time and expertise on this case, patient has reported psychiatric history and their help determining presence or lack there of comitant mental illness is greatly appreciated. 4. Obesity, chronic, present on admission - A1C ordered, r/o associated metabolic syndrome, pending at time of discharge 5.Asthma, chronic, present on admission - Hold albuterol until patient's anxiety resolved. Discontinued at discharge - Consider ipratropium neb PRN Q6 for SOB 6.Ascites, acute, present on admission, improving - U/S of abdomen showed small residual peritoneal fluid - s/p3.8L paracentesis by ER 04/06/2016 7. EtOH history, chronic, present on admission -Per outpatient records patient has long stating history of ETOH abuse -Continued treatment as above until discharge -Recommend close follow up as outpatient and outpatient abstinence program Exam Vital Signs (Last) Date Time Temp Pulse Resp B/P Pulse Ox O2 Delivery O2 Flow Rate FiO2 04/10/16 15:52 37.1 93 16 132/84 95 Room Air 04/09/16 19:20 12.00 Exam General: Alert, Oriented X3, non-cooperative, distressed, anxious, diaphoretic Head: Normocephalic, atraumatic. External ears normal. Eyes: PERRLA, EOMI. Anicteric sclerae. Pale conjunctiva Mouth: Mouth Normal, Mucous Membranes Moist/[place] Neck: Neck supple with full range of motion. No JVD Chest & Lungs: Clear to auscultation bilaterally with no crackles, wheezes, or rhonchi. Cardiovascular: Regular Rate/Rhythm, Normal S1, Normal S2, No Murmurs/Rubs/ Gallops Abdomen: Non-tender, distended, minimal ascites present, No masses, Normoactive bowel tones, Soft Musculoskeletal: Normal Range of Motion Extremities: No cyanosis/clubbing/edema bilaterally Neurological: Grossly Neurologically Intact, Cranial Nerves 2-12 Intact, speech normal rate and rhythm, normal Gait, Sensation Intact, Cerebellar Function Finger-Nose normal, Psych: flat affect, denies paranoia, denies auditory hallucinations, insight and judgement minimally limited, Test 04/08/16 03:40 04/08/16 16:46 04/09/16 03:15 04/10/16 03:05 Troponin T 0.010ug/L (0.0-0.011) Triglycerides Level 97mg/dL (0-149) Cholesterol Level 164mg/dL (100-199) LDL Cholesterol, Calculated 105.600mg/dL (0-99) VLDL Cholesterol 19.400mg/dL HDL Cholesterol 39mg/dL (>39) Cholesterol/HDL Ratio 4.21 (0.0-4.4) Thyroid Stimulating Hormone (TSH) 4.650uIU/mL (0.450-4.500) Free Thyroxine 1.15ng/dL (0.82-1.77) Vitamin B12 Level 1548pg/mL (211-946) Folate 9.7ng/mL (>3.0) Hepatitis A IgM Antibody Negative (Negative) Hepatitis B Surface Antigen Negative (Negative) Hepatitis B Core IgM Antibody Negative (Negative) Hepatitis C Antibody 0.1s/co ratio (0.0-0.9) Hepatitis C Comment Comment (.) HIV (1&2) Ag and Ab, 4th Generation Non reactive (Non Reactive) Phosphorus Level 1.2mg/dL (2.5-4.9) Lipase 66U/L (13-60) White Blood Count 4.9th/mm3 (3.8-10.1) Red Blood Count 4.25mil/mm3 (4.40-5.80) Hemoglobin 14.3g/dL (13.8-17.2) Hematocrit 40.4% (41.0-50.0) Mean Corpuscular Volume 95.1fL (81-100) Mean Corpuscular Hemoglobin 33.6pg (27.0-35.0) Mean Corpuscular Hemoglobin Concent 35.4% (32.0-37.0) Red Cell Distribution Width 13.5% (12.3-15.4) Platelet Count 37bil/L (150-400) Neutrophils (%) (Auto) 64.9% (40-74) Lymphocytes (%) (Auto) 21.4% (14-46) Monocytes (%) (Auto) 10.0% (4-12) Eosinophils (%) (Auto) 3.1% (0-5) Basophils (%) (Auto) 0.4% (0-3) Erythrocyte Sedimentation Rate 24mm/hr (0-15) Prothrombin Time 14.8sec (8.1-12.5) Prothromb Time International Ratio 1.37ratio Fibrinogen 165mg/dL (157-380) Sodium Level 140mEq/L (134-144) Potassium Level 3.6mEq/L (3.5-5.2) Chloride Level 103mEq/L (97-108) Carbon Dioxide Level 28mmol/L (18-29) Blood Urea Nitrogen 4mg/dL (6-20) Creatinine 0.48mg/dL (0.76-1.27) Estimat Glomerular Filtration Rate 211mL/min (>59) Glucose Level 100mg/dL (60-99) Calcium Level 7.9mg/dL (8.5-10.1) Magnesium Level 1.7mg/dL (1.6-2.6) Total Bilirubin 4.9mg/dL (0.0-1.2) Direct Bilirubin 2.1mg/dL (0.0-0.3) Aspartate Amino Transf (AST/SGOT) 134U/L (0-50) Alanine Aminotransferase (ALT/SGPT) 51U/L (0-44) Alkaline Phosphatase 137U/L (25-150) C-Reactive Protein 2.4mg/dL (0.0-0.5) Total Protein 6.8g/dL (6.4-8.4) Albumin 2.7g/dL (3.4-5.0) Discharge Medications Discharge Medications ([Thiamine]) 100 MG TABLET 100 MG PO DAILY Prescribed by: NITO BURGESS DO Chlordiazepoxide (Chlordiazepoxide) 25 Mg Capsule 50 MG PO TID Take one pill at night before bed 04/10/16 Take one pill in morning and one at night 04/11/16 Take one pill at night time before bed 04/12/16 If you experience worsening withdrawal symptoms take additional pill if this does not improve your symptoms in one hour seek emergency medical care. Prescribed by: NITO BURGESS DO Vit#96/Ferrous Fum/FA ( Tablet) 1 Each Tablet 1 TABLET PO DAILY Prescribed by: NITO BURGESS DO Followup Plan Disposition: Home Follow-up plan Follow up in one week with PCP Discharge Diet: Heart Healthy, Diabetic Discharge Activity: Limited until seen by PCP Patient Instructions Please follow up with the residency clinic as soon as possible. This week if possible. Continue Librium taper take one more at bed time tonight 04/10, tomorrow 04/11 take 1 in the morning and 1 at night, 04/12 take 1 at night Based on our discussions today you are ready to abstain from alcohol. We wish you the best of luck in your continuing recovery and continued health. We recommend that you continue with abstinence programs such as Alcoholics Anonymous. Continue home medications. Continue thiamine Continue vitamine supplements If you experience any symptoms of worsening withdrawal seek emergency medical care. Recommend follow up screening Ultrasound of liver in 6 months Discharge plan discussed with patient, patient agrees to plan, all questions answered. Follow-up Provider: NITO BURGESS DO Follow-up with PCP in: 1 week Time spent Greater than 30 minutes was spent in preparation of discharge with greater than 50% of that time dedicated to patient counseling and coordination of care. . Attending Statement The patient was seen and examined together with Dr. Burgess on 04/10/2016 and I agree with the history, exam and plan as outlined in the note above. . copies to: [facility] NITO BURGESS DO Apr 10, 2016 19:03 Roberto Castaneda MD Apr 11, 2016 07:47
== END 2016-04-10 17:00 | disposition home or self-care (01) | DRG 897 ==
LOC: SED 13:19 → PCC 16:57 → OBSVTOIN 16:57 → PCC 04-09 14:16
PROVIDERS: ADMIT Urology; ATTEND Urology
DX: F10.231 Alcohol dependence with withdrawal delirium (principal); Z68.42 Body mass index [BMI] 45.0-49.9, adult; K70.31 Alcoholic cirrhosis of liver with ascites; R16.1 Splenomegaly, not elsewhere classified; D69.6 Thrombocytopenia, unspecified; E66.09 Other obesity due to excess calories; J45.909 Unspecified asthma, uncomplicated

== ENCOUNTER 2016-05-11 13:42 | Emergency (ER) | payer OTHER ==
[~2016-05-11] VITALS: Ht 188 cm; Wt 170.0 kg
[~2016-05-11 13:42] MED LIST changes: +CHLO25CA10 PO; -LORA1TAB PO; -ONDA-53 PO; +PREN1TAB25 PO; +Thiamine PO
[2016-05-11 13:44] VITALS: BP 169/105; PULSE 128; RESP 22; O2SAT 95
[2016-05-11 13:52] VITALS: PULSE 121; RESP 16; O2SAT 94
--- NOTE | 2016-05-11 14:16 | ED.REPORT ---
HPI-General Illness Date of Service May 11, 2016 ED Provider: Porfirio Hall MD Patient is a 35 year old male who presents to the ED complaining of dizziness onset this morning upon waking. Associated symptoms include palpitations, fever , nausea with heaving, and diaphoresis. He denies vomiting, constipation, diarrhea, or any other symptoms. He has a history of EtOH abuse and has not drank in 35 days. Nursing Notes Stated Complaint: DIZZINESS,STOMACH PAIN Chief Complaint: General Complaint Nursing Notes Reviewed: Yes Allergies: Coded Allergies: diphenhydramine (Verified Allergy, Unknown, rash, 08/21/15) used benadry in lotion form when he had chicken pox as kid and broke out in rash where cream was applied Scheduled ([Thiamine]) 100 MG TABLET 100 MG PO DAILY Vit#96/Ferrous Fum/FA ( Tablet) 1 Each Tablet 1 TABLET PO DAILY Scheduled PRN Meclizine (Bonine) 25 Mg Tab.chew 25 MG PO QID PRN PRN For Dizziness General Time Seen by MD: 14:15 Chief Complaint Dizziness Hx Obtained From: Patient Arrived By: Walk-in Sudden in Onset?: Yes Recent Healthcare: Recent hospitalization Past Medical History Past Medical History alcoholism alcoholic cirrhosis with ascities Reports: Asthma, Hypertension, Denies: Diabetes mellitus Past Surgical History None Smoking History Never Smoker Social History daily THC use EtOH abuse Alcohol Use: In recovery Drug Use: THC Other Social History: Good social support Occupation Unemployed Ambulatory Status Independent Review of Systems Full Review of Systems Constitutional: Reports: Fever Cardiovascular: Reports: Palpitations GI: Reports: Nausea, Denies: Constipation, Diarrhea, Vomiting Skin: Reports Diaphoresis Neurologic: Reports: Dizziness Complete sys rev & neg: except as marked. Physical Exam Vital Signs Vital Signs Date Time Temp Pulse Resp B/P Pulse Ox O2 Delivery O2 Flow Rate FiO2 05/11/16 16:34 106 13 134/75 95 Room Air 05/11/16 16:03 106 13 134/75 95 Room Air 05/11/16 13:52 121 16 94 Room Air 05/11/16 13:44 36.9 128 22 169/105 95 Room Air Initial VS: Reviewed General/Constitutional: Well-developed, Well-nourished Head / Eyes: Atraumatic, Normocephalic Neck: Full range of motion Skin: Warm, Dry Neurologic: Alert, Oriented, Nonfocal Psychiatric: Mood/affect normal, Behavior normal, Normal thought content ENT: Tympanic membs NL Respiratory / Chest: Breath sounds NL, Breath sounds = bilat, No respiratory distress Cardiovascular: Regular rhythm, Heart sounds NL Heart Rate / Rhythm: Positive: Tachycardia Abdomen: Soft Pitting edema in lower abdomen Interpretation & Diagnostics Lab Results Interpretation Result Diagram: 05/11/16 1429 05/11/16 1429 Test 05/11/16 14:29 05/11/16 15:43 White Blood Count 6.9th/mm3 (3.8-10.1) Red Blood Count 4.72mil/mm3 (4.40-5.80) Hemoglobin 16.0g/dL (13.8-17.2) Hematocrit 43.7% (41.0-50.0) Mean Corpuscular Volume 92.6fL (81-100) Mean Corpuscular Hemoglobin 33.9pg (27.0-35.0) Mean Corpuscular Hemoglobin Concent 36.6% (32.0-37.0) Red Cell Distribution Width 14.2% (12.3-15.4) Platelet Count 128bil/L (150-400) Neutrophils (%) (Auto) 77.0% (40-74) Lymphocytes (%) (Auto) 11.3% (14-46) Monocytes (%) (Auto) 10.1% (4-12) Eosinophils (%) (Auto) 0.9% (0-5) Basophils (%) (Auto) 0.6% (0-3) Prothrombin Time 14.0sec (8.1-12.5) Prothromb Time International Ratio 1.30ratio Sodium Level 135mEq/L (134-144) Potassium Level 3.6mEq/L (3.5-5.2) Chloride Level 98mEq/L (97-108) Carbon Dioxide Level 25mmol/L (18-29) Blood Urea Nitrogen 3mg/dL (6-20) Creatinine 0.40mg/dL (0.76-1.27) Estimat Glomerular Filtration Rate 260mL/min (>59) Glucose Level 113mg/dL (60-99) Calcium Level 8.3mg/dL (8.5-10.1) Magnesium Level 1.5mg/dL (1.6-2.6) Total Bilirubin 4.3mg/dL (0.0-1.2) Aspartate Amino Transf (AST/SGOT) 72U/L (0-50) Alanine Aminotransferase (ALT/SGPT) 26U/L (0-44) Alkaline Phosphatase 114U/L (25-150) Total Protein 7.5g/dL (6.4-8.4) Albumin 2.8g/dL (3.4-5.0) Lipase 30U/L (13-60) Urine Color Brigid (YELLOW) Urine Appearance Clear (CLEAR,HAZY) Urine pH 6.5 (5.0-8.0) Urine Specific [place] 1.020 (1.003-1.035) Urine Protein Negativemg/dL (NEG,TRACE) Urine Glucose (UA) Negativemg/dL (NEGATIVE) Urine Ketones 15mg/dL (NEGATIVE) Urine Occult Blood Negative (NEGATIVE) Urine Nitrite Negative (NEGATIVE) Urine Bilirubin Moderate (NEGATIVE) Urine Ictotest Positive (Negative) Urine Urobilinogen 2mg/dL (NORMAL) Urine Leukocyte Esterase Negative (NEGATIVE) Urine RBC 0-2/hpf (0-2) Urine WBC 0-5/hpf (0-5) Urine Epithelial Cells Few/hpf (NONE-MOD) Urine Crystals None seen (NONE SEEN) Urine Bacteria Few/hpf (NONE-FEW) Urine Hyaline Casts None/lpf (NONE) Urine Granular Casts None seen (NONE SEEN) Urine Waxy Casts None seen (NONE SEEN) Urine Red Blood Cell Casts None seen (NONE SEEN) Urine White Blood Cell Casts None seen (NONE SEEN) Urine Mucus Present (None Seen) Urine Trichomonas None seen (NONE SEEN) Urine Yeast None (NONE SEEN) Urinalysis Comment None Urine Culture Reflexed Not indicated Re-Eval/Medical Decision Time of Eval: 15:44 Re-Evaluation/Progress Note: Rechecked patient. He is not orthostatic. Discussed plan for discharge. Patient understands and agrees with plan. All questions addressed at this time. Laying down: pulse 11, BP 140 systolic Standing: pulse 120, BP 132 systolic Counseled Regarding: Diagnosis, Lab results, Need for follow-up, When/why to return to ED Discharge & Departure Primary Impression: Benign positional vertigo Laterality: bilateral Qualified Code: H81.13 - Benign paroxysmal vertigo, bilateral Disposition: Home Discharge Condition All VS Reviewed: Yes Condition: Improved Patient Instructions: Benign Paroxysmal Positional Vertigo (ED) Additional Instructions: No dangerous cause for your dizziness is suspected today. Your blood work and abnormalities associated with your liver disease are improved compared to last month. I believe your symptoms are related to a condition known as "benign positional vertigo" this is not a dangerous condition and is associated with inflammation in the balance mechanism of one or both ears. Use meclizine as needed for dizziness and nausea. Follow-up in a few days if not significantly improved, sooner a few faint or have worsening symptoms otherwise. Referrals: [facility] Residency [facility] Scribe Attestation Portions of this note were transcribed by Katy Franco. I, Dr. Hall personally performed the history, physical exam and medical decision-making; I reviewed and confirmed the accuracy of the information in the transcribed note. Signed by: Katy Franco 05/11/16, 3697 copies to: [facility] Res[facility] Porfirio Hall MD May 11, 2016 14:16 KATY FRANCO May 11, 2016 14:28
[2016-05-11] MEDS ORDERED: Ondansetron 2 mg/mL 2 mL Inj IVPUSH PRN (14:25)
[2016-05-11 14:40] LABS: MONOCYTES % (AUTO) 10.1 % (4-12); Mean Corpuscular Hemoglobin 33.9 pg (27.0-35.0); Mean Corpuscular Volume 92.6 fL (81-100)
[2016-05-11 14:43] LABS: BASOPHILS % (AUTO) 0.6 % (0-3); EOSINOPHILS % (AUTO) 0.9 % (0-5); Platelet Count 128 bil/L (150-400)
[2016-05-11 14:56] LABS: INR 1.3 ratio
[2016-05-11 15:02] LABS: Magnesium 1.5 mg/dL (1.6-2.6)
[2016-05-11] MEDS ORDERED: MECL-114 PO (15:57)
[2016-05-11 16:01] LABS: APPEARANCE,URINE CLEAR (CLEAR,HAZY); COLOR,URINE AMBER (YELLOW); OCCULT BLOOD,URINE NEGATIVE (NEGATIVE); PH,URINE 6.5 (5.0-8.0)
[2016-05-11 16:02] LABS: UROBILINOGEN,URINE 2 mg/dL (NORMAL)
[2016-05-11 16:03] VITALS: BP 134/75; PULSE 106; RESP 13; O2SAT 95
[2016-05-11 16:03] LABS: ICTOTEST,URINE POSITIVE (Negative)
[2016-05-11 16:34] VITALS: BP 134/75; PULSE 106; RESP 13; O2SAT 95
== END 2016-05-11 16:36 | disposition home or self-care (01) ==
LOC: SED 13:42
DX: H81.13 Benign paroxysmal vertigo, bilateral (principal); I10 Essential (primary) hypertension; F12.10 Cannabis abuse, uncomplicated; Z87.19 Personal history of other diseases of the digestive system
CPT/HCPCS: 36415; 80053; 81000; 83690; 83735; 85025; 85610; 96374; 99284; J2405